=== PATIENT | male | born 1975 | race Caucasian/White ===

== ENCOUNTER 2017-11-18 14:21 | Emergency (ER) | payer MEDICAID ==
[~2017-11-18] VITALS: Wt 87.2 kg
[2017-11-18] MEDS ORDERED: KETOROLAC 60 MG INJ IM STA (14:48)
[2017-11-18] MEDS ORDERED: ACETAMINOPHEN 500 MG TAB PO STA (14:48)
--- NOTE | 2017-11-18 15:55 | RADRPT ---
PROCEDURE: XR Chest. CLINICAL INDICATION: chest pain, cough, fever TECHNIQUE: Single frontal view of the chest was obtained COMPARISON: None FINDINGS: The heart and mediastinum are within normal limits. There is a small right midlung calcified granuloma. The lungs are otherwise clear. There is no pleural effusion or pneumothorax. RPTAT: AA IMPRESSION: No acute disease. .Keaton Metcalf MD, MD Date Time Electronically viewed and signed by .Keaton Metcalf MD, on 11/18/2017 15:55 .S/
[2017-11-18] MEDS ORDERED: OSLT75C PO (16:03)
[2017-11-18] MEDS ORDERED: PROM5SYR2 PO (16:03)
[2017-11-18] MEDS ORDERED: ACET500C5 PO (16:03)
--- NOTE | 2017-11-18 16:09 | ERD ---
ER Documentation Chief Complaint Chief Complaint COUGH/CONGESTION/BODYACHE/FEVER X3DAYS HPI This 42-year-old male presents with 3 day history of body aches, cough, congestion and fever. There is a child with influenza in the household. He has no chest pain or vomiting. ROS All systems reviewed and are negative except as per history of present illness. Medications Home Meds Active Scripts Promethazine HCl/Codeine (Prometh-Codein 6.25-10 mg/5 ml) 5 Ml Syrup, 5 ML PO QID for 4 Days Prov:GIA DE LA ROSA MD 11/18/17 Oseltamivir Phosphate* (Tamiflu*) 75 Mg Capsule, 75 MG PO BID for 5 Days, CAP Prov:GIA DE LA ROSA MD 11/18/17 Acetaminophen* (Tylophen*) 500 Mg Capsule, 1 CAP PO Q6H Y for PAIN AND OR ELEVATED TEMP, #20 CAP Prov:GIA DE LA ROSA MD 11/18/17 Allergies Allergies: Coded Allergies: No Known Allergy (Unverified , 07/29/12) PMhx/Soc History of Surgery: No Anesthesia Reaction: No Hx Neurological Disorder: No Hx Respiratory Disorders: No Hx Cardiac Disorders: No Hx Psychiatric Problems: No Hx Miscellaneous Medical Probl: No Hx Alcohol Use: Yes Hx Substance Use: No Hx Tobacco Use: No Physical Exam Vitals Vital Signs Date Time Temp Pulse Resp B/P Pulse Ox O2 Delivery O2 Flow Rate FiO2 11/18/17 14:27 102.9 84 20 119/82 97 Physical Exam Const: [] Alert, uncomfortable due to presumed general malaise and body aches Head: Atraumatic Eyes: Normal Conjunctiva ENT: Normal External Ears, Nose and Mouth. TMs and oropharynx normal. Neck: Full range of motion..~ No meningismus. Resp: Clear to auscultation bilaterally. Coarse dry cough without rales or wheezing. Cardio: Regular rate and rhythm, no murmurs Abd: Soft, non tender, non distended. Normal bowel sounds Skin: No petechiae or rashes Back: No midline or flank tenderness Ext: No cyanosis, or edema Neur: Awake and alert Psych: Normal Mood and Affect Results 24 hrs Current Medications Medications (Trade) Dose Ordered Sig/Bang Route PRN Reason Start Time Stop Time Status Last Admin Dose Admin Ketorolac Tromethamine (Toradol) 60 mg ONCE STAT IM 11/18/17 14:48 11/18/17 14:50 DC 11/18/17 14:58 Acetaminophen (Tylenol Tab) 1,000 mg ONCE STAT PO 11/18/17 14:48 11/18/17 14:50 DC 11/18/17 14:57 Procedures/MDM She was given Tylenol for fever. Is given Toradol 60 mg IM. Chest X-ray 1V Interpreted by me: Soft Tissue: No acute abnormalities Bones: No acute abnormalities Mediastinum/Cardiac Silhouette/Lungs: [No acute abnormalities] impression- normal 1 view chest x-ray Patient has signs and symptoms of acute febrile illness URI, likely influenza. He was treated with Tamiflu, promethazine with codeine, fever control, primary care follow-up and return precautions. There is no evidence of hypoxemia or respiratory distress. The patient was stable with no new complaints during the ER course. Clinically, there is no current evidence to suggest meningitis, sepsis, acute abdomen, pneumonia, acute coronary syndrome, pulmonary embolism, or any other emergent condition appearing to require further evaluation or hospitalization. The patient should certainly return for any new or worsening symptoms per the aftercare instructions. They should otherwise follow-up with her primary care doctor for reevaluation this week. Departure Diagnosis: Primary Impression: Influenza Condition: Stable Patient Instructions: Fever Control (Adult), Influenza (Adult) Additional Instructions: probablamente un virus que dura 2-4 mayes. cheque otro vez en el proximo yasmin para mas simptomas- vomito, dolor, bernie, problemas con respirando, o con estrella doctor primario. Shena ibupropfen 600mg cada 6 horas tambien para fiebre. GIA DE LA ROSA MD Nov 18, 2017 16:09
== END 2017-11-18 16:52 | disposition home or self-care (01) ==
LOC: FTE 14:21
DX: J11.1 Influenza due to unidentified influenza virus with other respiratory manifestations (principal)
CPT/HCPCS: 71010; 90472; J1885; Z7502; Z7610

== ENCOUNTER 2018-05-01 20:49 | Emergency (ER) | END 2018-05-01 21:45 | disposition home or self-care (01) ==

== ENCOUNTER 2018-07-27 10:44 | Emergency (ER) | END 2018-07-27 15:20 | disposition home or self-care (01) ==

== ENCOUNTER 2018-07-30 08:20 | Emergency (ER) | END 2018-07-30 10:41 | disposition home or self-care (01) ==

== ENCOUNTER 2019-02-08 14:12 | Emergency (ER) | payer MEDICAID ==
[~2019-02-08] VITALS: Ht 170.2 cm; Wt 88.3 kg
[~2019-02-08 14:12] MED LIST: ACET500C5 PO; AMOX1TAB10 PO; CEPH-443 PO; IBUP-1542 PO; OSEL75CA23 PO; PROM5SYR2 PO; SULF1TAB31 PO
[2019-02-08 14:24] VITALS: Ht 170.2 cm; Wt 88.3 kg
--- NOTE | 2019-02-08 16:14 | ERD ---
ER Documentation Chief Complaint Chief Complaint cough x 3 weeks, feeling weakness/tired HPI 43-year-old male, previously healthy, presents the emergency department, complaining of 3 weeks with persistent cough, nonproductive, associated with subjective fever, general malaise. The patient also reports 2 days with dizziness, described as a spinning sensation with sudden changes in position, associated with left arm weakness. He denies chest pain, no shortness of breath. ROS All systems reviewed and are negative except as per history of present illness. Medications Home Meds Active Scripts Meclizine Hcl* (Antivert*) 12.5 Mg Tab, 12.5 MG PO Q6H PRN for DIZZINESS, #20 TAB Prov:DANA COLLINS MD 02/08/19 Sulfamethoxazole/Trimethoprim* (Bactrim Ds* Tablet) 1 Each Tablet, 1 TAB PO BID, #20 TAB Prov:MOHAN BANKSC 07/30/18 Ibuprofen* (Motrin*) 600 Mg Tab, 600 MG PO Q6, #30 TAB Prov:CARMEL SURESHC 07/27/18 Cephalexin* (Keflex*) 500 Mg Capsule, 500 MG PO QID for 7 Days, CAP Prov:CARMEL SURESHC 07/27/18 Amoxicillin/Potassium Clav (Amox-Clav 875-125 mg Tablet) 875-125 mg Tab, 1 TAB PO BID for 7 Days, #14 TAB Prov:SUZANNE ROMANC 05/01/18 Promethazine HCl/Codeine (Prometh-Codein 6.25-10 mg/5 ml) 5 Ml Syrup, 5 ML PO QID for 4 Days Prov:GIA DE LA ROSA MD 11/18/17 Oseltamivir Phosphate* (Tamiflu*) 75 Mg Capsule, 75 MG PO BID for 5 Days, CAP Prov:GIA DE LA ROSA MD 11/18/17 Acetaminophen* (Tylophen*) 500 Mg Capsule, 1 CAP PO Q6H PRN for PAIN AND OR ELEVATED TEMP, #20 CAP Prov:GIA DE LA ROSA MD 11/18/17 Allergies Allergies: Coded Allergies: No Known Allergy (Unverified , 02/08/19) PMhx/Soc Medical and Surgical Hx: pt denies Medical Hx, pt denies Surgical Hx History of Surgery: No Anesthesia Reaction: No Hx Neurological Disorder: No Hx Respiratory Disorders: No Hx Cardiac Disorders: No Hx Psychiatric Problems: No Hx Miscellaneous Medical Probl: No Hx Alcohol Use: Yes (social) Hx Substance Use: No Hx Tobacco Use: No Smoking Status: Never smoker FmHx Family History: No diabetes, No coronary disease Physical Exam Vitals Vital Signs Date Temp Pulse Resp B/P (MAP) Pulse Ox O2 O2 Flow FiO2 Time Delivery Rate 02/08/19 98.0 70 20 121/84 100 14:24 (96) Physical Exam Patient is in no acute distress, vital signs stable. Alert and fully oriented. HEENT: PERRLA, EOMI, Sclera and conjunctiva appear normal, Canals clear, tympanic membranes WNL. THROAT: Normal oropharynx. NECK: Supple, No lymphadenopathy. Full ROM without pain or tenderness. HEART: RRR, no rubs, murmurs, clicks or gallops. LUNGS: Clear to auscultation. ABDOMEN: Soft, non-tender without masses or hepatosplenomegaly. EXTREMITIES: No edema bilaterally. BACK: Full ROM, no deformity, normal back exam NEURO: Cranial nerves grossly intact, no motor or sensory deficit. Mild horizontal nystagmus while the patient was looking straight ahead with mildly abnormal head impulse test. Result Diagram: 02/08/19 1638 02/08/19 1638 Results 24 hrs Laboratory Tests Test 02/08/19 16:38 White Blood Count 4.9 10^3/ul Red Blood Count 5.01 10^6/ul Hemoglobin 14.4 g/dl Hematocrit 43.6 % Mean Corpuscular Volume 87.0 fl Mean Corpuscular Hemoglobin 28.7 pg Mean Corpuscular Hemoglobin Concent 33.0 g/dl Red Cell Distribution Width 13.3 % Platelet Count 228 10^3/UL Mean Platelet Volume 9.7 fl Immature Granulocytes % 0.400 % Neutrophils % 55.7 % Lymphocytes % 32.2 % Monocytes % 7.9 % Eosinophils % 3.2 % Basophils % 0.6 % Nucleated Red Blood Cells % 0.0 /100WBC Immature Granulocytes # 0.020 10^3/ul Neutrophils # 2.8 10^3/ul Lymphocytes # 1.6 10^3/ul Monocytes # 0.4 10^3/ul Eosinophils # 0.2 10^3/ul Basophils # 0.0 10^3/ul Nucleated Red Blood Cells # 0.0 10^3/ul Urine Color STRAW Urine Clarity CLEAR Urine pH 7.0 Urine Specific Moody 1.005 Urine Ketones NEGATIVE mg/dL Urine Nitrite NEGATIVE mg/dL Urine Bilirubin NEGATIVE mg/dL Urine Urobilinogen NEGATIVE mg/dL Urine Leukocyte Esterase NEGATIVE Ene/ul Urine Hemoglobin NEGATIVE mg/dL Urine Glucose NEGATIVE mg/dL Urine Total Protein NEGATIVE mg/dl Sodium Level 140 mmol/L Potassium Level 4.4 mmol/L Chloride Level 102 mmol/L Carbon Dioxide Level 29 mmol/L Anion Gap 9 Blood Urea Nitrogen 11 mg/dl Creatinine 0.73 mg/dl Est Glomerular Filtrat Rate mL/min > 60 mL/min Glucose Level 90 mg/dl Calcium Level 9.3 mg/dl DIAGNOSTIC IMAGING REPORT Patient: MALA MENDOZA : 1975 Age: 43 Sex: M MR #: [id number] DOS: 02/08/19 1627 Ordering MD: DANA COLLINS MD Location: ON [facility] OF [facility] Room/Bed: PROCEDURE: CT Brain without contrast CLINICAL INDICATION: Patient experiencing dizziness TECHNIQUE: A CT of the brain was performed on multidetector high-resolution CT scanner utilizing axial sections from the skull base through the vertex without contrast. The scan was reviewed in soft tissue brain and high frequency resolution bone algorithm windows. Images were reviewed on a high-resolution PACS workstation. DICOM images are available. CTDI (mGy): 39.64 mGy and DLP(mGy-cm): 634.23 mGy.cm One or more of the following dose reduction techniques were used: - Automated exposure control. - Adjustment of the mA and/or kV according to patient size. Use of iterative reconstruction technique. COMPARISON: None available FINDINGS: The ventricles and sulci are symmetric and normal in size and morphology. There is no evidence of intracranial hemorrhage, mass effect, edema or midline shift. No abnormal intra-axial or extra-axial fluid collections are seen. The density of the brain is normal and the taylor/white matter differentiation is well preserved. Brainstem and posterior fossa structures are equally unremarkable. The osseous structures and visualized paranasal sinuses are unremarkable. The surrounding soft tissue scalp and bony calvarium are intact and normal. IMPRESSION: No CT evidence of acute intracranial changes identified including mass effect, herniation, hemorrhage or effacement of the taylor-white matter distinction. In the clinically appropriate situation, brain MRI can be obtained for potentially CT occult findings such as early ischemia, vasogenic edema, or parenchymal lesions. RPTAT: EE Physician [place] Jean Date Time Electronically viewed and signed by Marlyn Cho Physician [employer] Restorer on 02/08/2019 17:22 rP/ CC: DANA COLLINS MD [phone] Procedures/MDM Vital signs stable, neurovascular exam revealed horizontal nystagmus while the patient was looking straight ahead with mildly abnormal head impulse test. Differential diagnosis include but not limited to dehydration, cardiac arrhythmia, , Mnire's disease, vestibular neuronitis, migraine, vertigo, side effects of the medications, hypoglycemia. Less likely but is still a possibility, intracranial hemorrhage, ischemic stroke, [employer] neoplasm. Pertinent Data: 12 Lead ECG: Sinus rhythm 49, no ST changes, normal T wave, normal intervals Labs: CBC: normal, BMP: normal kidney function, normal electrolytes. Glucose: normal Urine : Negative. CT head: Normal Physical examination and clinical presentation consistent most likely with positional vertigo During the ED course the patient remained stable, no new complaints. Results and clinical impression discussed with patient who agrees with management. The patient is stable to be treated outpatient and will be discharged home with instructions to follow up with the primary care provider in the next 48h. If symptoms persist, worsen or new symptoms develop, then patient should return to the ED immediately. Instructions explained and given directly by me to the patient with acknowled gment and demonstrated understanding. Disclaimer: Inadvertent spelling and grammatical errors are likely due to EHR/dictation software use and do not reflect on the overall quality of patient care. Also, please note that the electronic time recorded on this note does not necessarily reflect the actual time of the patient encounter. Departure Diagnosis: Primary Impression: Dizziness Additional Impression: Positional vertigo Condition: Stable Patient Instructions: Possible Causes of Dizziness or Fainting Additional Instructions: Marcie clement por [facility] para estrella servicio. Esperamos que en estrella visita a la lyudmila de emergencia estrella problema medico haya sido solucionado y que se sienta mucho mejor. Para estar seguros que estrella mejoria sigue en proceso, le pedimos el favor de hacer lauren rashad de seguimiento medico con estrella doctor primario en los proximos 2-4 mayes. Lleve con usted estos documentos y las medicinas recetadas. Si cindy sintomas empeoran, NO SE ESPERE, por favor regrese a lyudmila de emergencia INMEDIATAMENTE. En marisol que usted no tenga un mdico de atencin primaria: Llame al mdico o clnica comunitaria de referencia que aparece abajo lubna las horas de consultorio para hacer lauren rashad para que le vean. CLINICAS: [facility] [phone] [facility] [phone] [facility] [phone] [place] [phone] [facility] [place] [id number] [phone] [phone] DANA PICKENS MD Feb 08, 2019 16:14
[2019-02-08] MEDS ORDERED: MECL12.574 PO (17:40)
[2019-02-08 17:57] VITALS: BP 119/81; PULSE 72; RESP 20
== END 2019-02-08 18:00 | disposition home or self-care (01) ==
LOC: FTE 14:12
DX: H81.10 Benign paroxysmal vertigo, unspecified ear (principal)
CPT/HCPCS: 70450; 80048; 81003; 85025; 93005; Z7502

== ENCOUNTER 2019-04-30 00:38 | Emergency (ER) | payer MEDICAID ==
[~2019-04-30] VITALS: Ht 175.3 cm; Wt 70.0 kg
[~2019-04-30 00:38] MED LIST changes: +MECL12.574 PO
[2019-04-30 00:39] VITALS: Ht 175.3 cm; Wt 70.0 kg
[2019-04-30] MEDS ORDERED: KETOROLAC 60 MG INJ IM STA (02:07)
[2019-04-30] MEDS ORDERED: IBUP-1542 PO (02:46)
[2019-04-30] MEDS ORDERED: CYCL10TA7 PO (02:49)
--- NOTE | 2019-04-30 02:53 | ERD ---
ER Documentation Chief Complaint Chief Complaint UPPER BACK PAIN X 1 WEEK. HPI 43-year-old male presents with left upper back pain for last week. He does work with his upper body a lot. Denies any trauma. Denies any fevers, cough, shortness of breath or chest pain. ROS All systems reviewed and are negative except as per history of present illness. Medications Home Meds Active Scripts Cyclobenzaprine Hcl* (Cyclobenzaprine Hcl*) 10 Mg Tablet, 10 MG PO TID, #15 TAB Prov:GIA DE LA ROSA MD 04/30/19 Ibuprofen* (Motrin*) 600 Mg Tab, 600 MG PO Q6, #20 TAB Prov:GIA DE LA ROSA MD 04/30/19 Meclizine Hcl* (Antivert*) 12.5 Mg Tab, 12.5 MG PO Q6H PRN for DIZZINESS, #20 TAB Prov:DANA COLLINS MD 02/08/19 Sulfamethoxazole/Trimethoprim* (Bactrim Ds* Tablet) 1 Each Tablet, 1 TAB PO BID, #20 TAB Prov:MOHAN BANKSC 07/30/18 Ibuprofen* (Motrin*) 600 Mg Tab, 600 MG PO Q6, #30 TAB Prov:CARMEL SURESHC 07/27/18 Cephalexin* (Keflex*) 500 Mg Capsule, 500 MG PO QID for 7 Days, CAP Prov:CARMEL SURESHC 07/27/18 Amoxicillin/Potassium Clav (Amox-Clav 875-125 mg Tablet) 875-125 mg Tab, 1 TAB PO BID for 7 Days, #14 TAB Prov:SUZANNE ROMANC 05/01/18 Promethazine HCl/Codeine (Prometh-Codein 6.25-10 mg/5 ml) 5 Ml Syrup, 5 ML PO QID for 4 Days Prov:GIA DE LA ROSA MD 11/18/17 Oseltamivir Phosphate* (Tamiflu*) 75 Mg Capsule, 75 MG PO BID for 5 Days, CAP Prov:GIA DE LA ROSA MD 11/18/17 Acetaminophen* (Tylophen*) 500 Mg Capsule, 1 CAP PO Q6H PRN for PAIN AND OR ELEVATED TEMP, #20 CAP Prov:GIA DE LA ROSA MD 11/18/17 Allergies Allergies: Coded Allergies: No Known Allergy (Unverified , 02/08/19) PMhx/Soc History of Surgery: No Anesthesia Reaction: No Hx Neurological Disorder: No Hx Respiratory Disorders: No Hx Cardiac Disorders: No Hx Psychiatric Problems: No Hx Miscellaneous Medical Probl: No Hx Alcohol Use: Yes (social) Hx Substance Use: No Hx Tobacco Use: No Smoking Status: Never smoker FmHx Family History: No diabetes, No coronary disease, No other Physical Exam Vitals Vital Signs Date Temp Pulse Resp B/P (MAP) Pulse Ox O2 O2 Flow FiO2 Time Delivery Rate 04/30/19 97.2 56 16 129/88 99 00:39 (102) Physical Exam Const: No acute distress Head: Atraumatic Eyes: Normal Conjunctiva ENT: Normal External Ears, Nose and Mouth. Neck: Full range of motion. No meningismus. Resp: Clear to auscultation bilaterally Cardio: Regular rate and rhythm, no murmurs Abd: Soft, non tender, non distended. Normal bowel sounds Skin: No petechiae or rashes Back: No midline or flank tenderness tender with spasm right upper rhomboid area. No point tenderness or deformities.. No skin changes. Ext: No cyanosis, or edema Neur: Awake and alert Psych: Normal Mood and Affect Results 24 hrs Current Medications Medications Dose Sig/Bang Start Time Status Last (Trade) Ordered Route PRN Stop Time Admin Dose Reason Admin Ketorolac 60 mg ONCE STAT 04/30/19 DC 04/30/19 Tromethamine IM 02:07 04/30/19 02:16 (Toradol) 02:08 Procedures/MDM Patient presents with signs and symptoms are reproducible upper back pain consistent with thoracic spasm. He has no signs of hypoxemia, pneumonia, chest pain, abdominal pain. He will be treated with ibuprofen, Flexeril, recommendations for stretching massage, primary care follow-up and return precautions for fevers, shortness of breath, vomiting, new worsening symptoms. The patient was stable with no new complaints during the ER course. Clinically, there is no current evidence to suggest meningitis, sepsis, acute abdomen, pneumonia, stroke, acute coronary syndrome, pulmonary embolism, aortic dissection or any other emergent condition appearing to require further evaluation or hospitalization. Patient counseled regarding my diagnostic impression and care plan. Prior to discharge all questions answered. Pt agrees with treatment plan and understands strict return precautions. Pt is instructed to follow up with primary care provider within 24-48 hours. Precautionary instructions provided including instructions to return to the ER if not improving or for any worsening or changing symptoms or concerns. Disclaimer: Inadvertent spelling and grammatical errors are likely due to EHR/dictation software use and do not reflect on the overall quality of patient care. Also, please note that the electronic time recorded on this note does not necessarily reflect the actual time of the patient encounter. Departure Diagnosis: Primary Impression: Thoracic myofascial strain Encounter type: initial encounter Qualified Codes: S29.019A - Strain of muscle and tendon of unspecified wall of thorax, initial encounter Condition: Stable Patient Instructions: Thoracic Strain Referrals: NO PRIMARY,CARE PHYSICIAN (PCP) Additional Instructions: es un musculo. recomiendo massage. Cheque otro vez con estrella doctor primario en el proximo mayes or regresa para mas o nueva simptomas. GIA DE LA ROSA MD Apr 30, 2019 02:53
[2019-04-30 03:04] VITALS: BP 106/81; PULSE 60; RESP 18
== END 2019-04-30 03:06 | disposition home or self-care (01) ==
LOC: FTE 00:38
DX: S29.012A Strain of muscle and tendon of back wall of thorax, initial encounter (principal); X58.XXXA Exposure to other specified factors, initial encounter; Y92.9 Unspecified place or not applicable
CPT/HCPCS: 96372; J1885; Z7502

== ENCOUNTER 2019-07-21 20:25 | Emergency (ER) | payer MEDICAID ==
[~2019-07-21] VITALS: Ht 167.6 cm; Wt 87.2 kg
[~2019-07-21 20:25] MED LIST changes: +CYCL10TA7 PO; +IBUP800T48 PO
[2019-07-21 20:31] VITALS: BP 136/85; PULSE 70; RESP 16; Ht 167.6 cm; Wt 87.2 kg
[2019-07-21] MEDS ORDERED: KETOROLAC 60 MG INJ IM STA (21:39)
[2019-07-21] MEDS ORDERED: LIDOCAINE 1% (MDV) 20 ML INJ SC ONE (22:00)
[2019-07-21] MEDS ORDERED: CEFTRIAXONE 1 GM INJ IM ONE (22:00)
== END 2019-07-21 22:15 | disposition home or self-care (01) ==
LOC: FTE 20:25
DX: M70.52 Other bursitis of knee, left knee (principal); F17.210 Nicotine dependence, cigarettes, uncomplicated; L03.818 Cellulitis of other sites; Y93.89 Activity, other specified
CPT/HCPCS: 96372; J0696; J1885; Z7502; Z7610

== ENCOUNTER 2019-09-20 16:57 | Emergency (ER) | payer MEDICAID ==
[~2019-09-20] VITALS: Ht 172.7 cm; Wt 74.2 kg
[~2019-09-20 16:57] MED LIST changes: +D-ME473S2 PO; +FLUT9.9S NASAL
[2019-09-20 16:59] VITALS: BP 125/76; PULSE 84; RESP 18; Ht 172.7 cm; Wt 74.2 kg
[2019-09-20] MEDS ORDERED: ACETAMINOPHEN 500 MG TAB PO STA (18:31)
== END 2019-09-20 19:31 | disposition home or self-care (01) ==
LOC: FTE 16:57
DX: J06.9 Acute upper respiratory infection, unspecified (principal); F17.210 Nicotine dependence, cigarettes, uncomplicated; R05 Cough; R51 Headache; R11.10 Vomiting, unspecified
CPT/HCPCS: 71045; 87400; Z7502; Z7610